=== PATIENT | female | born 1960 | race Caucasian/White ===

== ENCOUNTER 2024-08-07 22:23 | Inpatient (IN) | payer OTHER ==
[2024-08-07] MEDS ORDERED: fentaNYL 50 mcg/mL 1 mL Vial ONE (23:06)
[2024-08-08 00:36] LABS: #Basophils 0.03 10x3/uL (0.0-0.2); %Basophils 0.2 % (0.0-1.0); %Eosinophils 1.5 % (0.0-10.0); %Lymphocytes 15.3 % (21.0-51.0); %Monocytes 5.3 % (0.0-10.0); %Neutrophils 77.2 % (42.0-75.0); Hematocrit 38.8 % (36.0-47.0); Hemoglobin 12.8 g/dL (12.0-16.0); Mean Corpuscular Hemoglobin 29.9 pg (27.0-31.0); Mean Corpuscular Volume 90.7 fL (78.0-98.0); Mean Platelet Volume 9.8 fL (7.4-10.4); Platelet Count 205 10x3/uL (130-400); RBC Distribution Width 12.4 % (11.5-14.5); Red Blood Cell (RBC) Count 4.28 mill/uL (4.20-5.40)
[2024-08-08 00:54] LABS: ALT (SGPT) 13 U/L (8-55); AST (SGOT) 17 U/L (5-34); Albumin 3.9 g/dL (3.4-4.8); Alkaline Phosphatase 82 U/L (40-110); Anion Gap 16 mmol/L (10-20); BUN (Urea Nitrogen) 15 mg/dL (9.8-20.1); Bilirubin, Total 0.2 mg/dL (0.2-1.2); Calc. Creatinine Clearance 0 mL/min (70-130); Calcium 9.3 mg/dL (7.8-10.44); Carbon Dioxide 23 mmol/L (23-31); Chloride 104 mmol/L (98-107); Estimated GFR 78; Globulin 3.9 g/dL (2.4-3.5); Glucose 133 mg/dL (80-115); Potassium 3.8 mmol/L (3.5-5.1); Protein, Total 7.8 g/dL (5.8-8.1); Sodium 139 mmol/L (136-145)
[2024-08-08 01:04] LABS: PTT 26.7 sec (22.9-36.1)
[2024-08-08] MEDS ORDERED: Orphenadrine Citrate 60 MG/2 ML VIAL ONE (01:56)
[2024-08-08] MEDS ORDERED: Morphine 4 MG/ML VIAL ONE ×2 (01:57→14:15)
[2024-08-08 03:23] VITALS: BMI 41.4
[2024-08-08] MEDS ORDERED: Ondansetron ODT 4 MG TAB SL PRN (03:30)
[2024-08-08] MEDS: Sodium Chloride 0.9% 1,000 ML IV SCH (04:03)
[2024-08-08] MEDS: fentaNYL 50 mcg/mL 1 mL Vial SLOW IVP PRN (05:30)
[2024-08-08] MEDS ORDERED: Ipratropium/Albuterol 3 ML NEB NEB PRN (05:35)
[2024-08-08] MEDS: TETANUS, DIPHTHERIA TOX,ADULT (TDVAX) 0.5 ML VIAL IM ONE (05:45)
[2024-08-08] MEDS: Acetaminophen 325 MG TAB PO SCH (05:53)
[2024-08-08] MEDS: traMADol HCl 50 MG TAB PO SCH (05:53)
[2024-08-08] MEDS ORDERED: CEFAZOLIN 2 GM in Sodium Chloride 0.9% 100 ML IVPB SCH (08:30)
[2024-08-08] MEDS: Famotidine/PF 20 mg/2ml Vial SLOW IVP SCH (08:54)
[2024-08-08] MEDS: Morphine 2 MG/ML VIAL SLOW IVP PRN ×2 (08:55→20:49)
[2024-08-08] MEDS: Ondansetron PF 4 MG/2 ML Vial IVP PRN (13:30)
[2024-08-08] MEDS ORDERED: Lidocaine 1% PF 5 ML VIAL ONE (15:29)
[2024-08-08] MEDS ORDERED: fentaNYL PF 100 MCG/2 ML SYRINGE ONE ×3 (15:29→18:02)
[2024-08-08] MEDS ORDERED: Ondansetron PF 4 MG/2 ML Vial ONE (15:29)
[2024-08-08] MEDS ORDERED: Dexamethasone 4 mg/ml Vial ONE (15:29)
[2024-08-08] MEDS ORDERED: PROPOFOL 40 ML ONE (15:29)
[2024-08-08] MEDS ORDERED: Dexmedetomidine 200 MCG/2 ML VIAL ONE (15:30)
[2024-08-08] MEDS ORDERED: PHENYLEPHRINE-NS 100 MCG/ML 10 ML SYRINGE ONE (16:04)
[2024-08-08] MEDS ORDERED: HYDROmorphone 0.5 MG/0.5 ML SYRINGE ONE ×2 (17:32→18:01)
[2024-08-08] MEDS ORDERED: fentaNYL 50 mcg/mL 1 mL Vial ONE (18:49)
[2024-08-08] MEDS: Methocarbamol 500 MG TAB PO PRN (20:48)
[2024-08-08] MEDS: Docusate 100 MG CAP PO SCH (20:48)
[2024-08-08] MEDS: CEFAZOLIN 2 GM in Sodium Chloride 0.9% 100 ML IVPB SCH (22:17)
[2024-08-09] MEDS: traMADol HCl 50 MG TAB PO PRN (05:09)
[2024-08-09 05:45] LABS: #Basophils Less than 0.03 10x3/uL (0.0-0.2); #Eosinophils Less than 0.03 10x3/uL (0.0-0.7); %Basophils 0.1 % (0.0-1.0); %Lymphocytes 9.8 % (21.0-51.0); %Monocytes 4.7 % (0.0-10.0); %Neutrophils 85.1 % (42.0-75.0); Hematocrit 33.6 % (36.0-47.0); Hemoglobin 11.2 g/dL (12.0-16.0); Mean Corpuscular HGB CONC 33.3 g/dL (32.0-36.0); Mean Corpuscular Hemoglobin 30.6 pg (27.0-31.0); Mean Corpuscular Volume 91.8 fL (78.0-98.0); Mean Platelet Volume 10.1 fL (7.4-10.4); Platelet Count 205 10x3/uL (130-400); RBC Distribution Width 12.1 % (11.5-14.5); Red Blood Cell (RBC) Count 3.66 mill/uL (4.20-5.40)
[2024-08-09 05:56] LABS: Anion Gap 11 mmol/L (10-20); BUN (Urea Nitrogen) 11 mg/dL (9.8-20.1); Calc. Creatinine Clearance 129 mL/min (70-130); Calcium 8.8 mg/dL (7.8-10.44); Carbon Dioxide 25 mmol/L (23-31); Chloride 104 mmol/L (98-107); Estimated GFR 98; Glucose 130 mg/dL (80-115); Potassium 4.3 mmol/L (3.5-5.1); Sodium 136 mmol/L (136-145)
[2024-08-09] MEDS ORDERED: TURMERIC ROOT EXTRACT 500 MG PO SCH (09:00)
[2024-08-09] MEDS: Enoxaparin 40 MG (0.4 mL) SYRINGE SC SCH (10:20)
[2024-08-09] MEDS: Pantoprazole DR 40 MG TAB PO SCH (10:21)
[2024-08-09] MEDS: Lisinopril 10 MG TAB PO SCH (10:21)
[2024-08-09] MEDS: Aspirin 81 mg Enteric Coated Tablet PO SCH (21:54)
[2024-08-10 16:54] VITALS: BP 124/73; TEMP 97.6
== END 2024-08-10 18:11 | disposition home health service (06) | DRG 516 ==
LOC: ERS 22:23 → SURG B 08-08 02:09 → OBSVTOIN 08-08 10:37
PROVIDERS: ADMIT Student in an Organized Health Care Education/Training Program; ATTEND Student in an Organized Health Care Education/Training Program
PROC: 0QSF04Z Reposition Left Patella with Internal Fixation Device, Open Approach (ICD-10-PCS; principal; 2024-08-08)
DX: S82.032A Displaced transverse fracture of left patella, initial encounter for closed fracture (principal); Z68.41 Body mass index [BMI] 40.0-44.9, adult; E66.9 Obesity, unspecified; I10 Essential (primary) hypertension; E78.5 Hyperlipidemia, unspecified; S93.401A Sprain of unspecified ligament of right ankle, initial encounter; W19.XXXA Unspecified fall, initial encounter; Z90.49 Acquired absence of other specified parts of digestive tract
CPT/HCPCS: 36415; 71045; 80048; 80053; 85025; 85610; 85730; 86850; 86900; 86901; 93005; 96374; 96375; 96376; C1713; G0378; J1100; J1650; J2272; J2360; J2405; J2704; J3010; J3490; J7030

== ENCOUNTER 2025-05-31 10:37 | Outpatient (CLI) | payer OTHER | END 2025-05-31 10:38 | disposition home or self-care (01) | LOC: ULT 10:37 | PROVIDERS: ATTEND Family Medicine | DX: R16.2 Hepatomegaly with splenomegaly, not elsewhere classified (principal); R59.0 Localized enlarged lymph nodes | CPT/HCPCS: 76536; 76700 ==

== ENCOUNTER 2025-08-18 09:16 | Outpatient (CLI) | payer SELFPAY | END 2025-08-18 09:17 | disposition home or self-care (01) | LOC: PET 09:16 | PROVIDERS: ATTEND Internal Medicine Hematology & Oncology | DX: C79.89 Secondary malignant neoplasm of other specified sites (principal); C79.51 Secondary malignant neoplasm of bone; R59.0 Localized enlarged lymph nodes | CPT/HCPCS: 78816; A9552 ==